=== PATIENT | female | born 1960 | race Caucasian/White ===

== ENCOUNTER 2016-05-02 08:00 | Outpatient (CLI) | payer MEDICAID | END 2016-05-02 08:01 | disposition home or self-care (01) | DX: I10 Essential (primary) hypertension (principal); F41.9 Anxiety disorder, unspecified; F32.9 Major depressive disorder, single episode, unspecified ==

== ENCOUNTER 2016-06-20 18:50 | Emergency (ER) | payer MEDICAID ==
[2016-06-20] MEDS ORDERED: GABAPENTIN 100 MG CAPSULE PO STA (19:55)
[2016-06-20] MEDS ORDERED: HYDROcod/ACETAM 5/325 MG TABLET PO STA (19:56)
[2016-06-20] MEDS ORDERED: GABAPENTIN 300 MG CAPSULE ONE (19:58)
[2016-06-20] MEDS ORDERED: HYDROcod/ACETAM 5/325 MG TABLET ONE (19:58)
[2016-06-20] MEDS ORDERED: HYDROcod/ACET 5/325 Prepack 6 PO STA (21:09)
[2016-06-20] MEDS ORDERED: HYDROcod/ACET 5/325 Prepack 6 PO ONE (21:18)
== END 2016-06-20 21:25 | disposition home or self-care (01) ==
DX: S92.355A Nondisplaced fracture of fifth metatarsal bone, left foot, initial encounter for closed fracture (principal); W01.0XXA Fall on same level from slipping, tripping and stumbling without subsequent striking against object, initial encounter; Y92.019 Unspecified place in single-family (private) house as the place of occurrence of the external cause; I10 Essential (primary) hypertension; K75.9 Inflammatory liver disease, unspecified; F17.200 Nicotine dependence, unspecified, uncomplicated
CPT/HCPCS: 29515; 73630; 99283; A9270

== ENCOUNTER 2017-06-24 11:31 | Outpatient (CLI) | payer MEDICAID ==
--- NOTE | 2017-06-25 13:18 | Mammography Report ---
DIGITAL SCREENING MAMMOGRAM: 06/24/2017 CLINICAL INDICATION: A 57-year-old for screening. COMPARISON: 03/2014, 08/2010. TECHNIQUE: Routine CC and MLO projections were obtained of the breasts. FINDINGS: The breasts again demonstrate fatty replacement bilaterally. Coarse and punctate, typically benign calcifications are present. No suspicious masses, clustered microcalcifications, or regions of architectural distortion are identified. IMPRESSION: BENIGN FINDINGS. RECOMMENDATION: Routine annual screening unless otherwise clinically indicated. BIRADS CATEGORY 2 - BENIGN FINDINGS. STANDARD QUALIFYING STATEMENTS: 1. This examination was reviewed with the aid of Computer-Aided Detection (CAD). 2. A negative or benign imaging report should not delay biopsy if clinically suspicious findings are present. Consider surgical consultation if warranted. More than 5% of cancers are not identified by imaging. 3. Dense breasts may obscure an underlying neoplasm. TD: 06/25/2017 13:17
== END 2017-06-24 11:32 | disposition home or self-care (01) ==
LOC: DI.N 11:31
PROVIDERS: ATTEND Family Medicine
DX: Z12.31 Encounter for screening mammogram for malignant neoplasm of breast (principal)
CPT/HCPCS: 77067

== ENCOUNTER 2017-09-12 12:01 | Day surgery (SDC) | payer MEDICAID ==
[2017-09-12] MEDS ORDERED: LACTATED RINGERS 1,000 ML IV ONE (12:31)
[2017-09-12 15:33] VITALS: BP 138/67
== END 2017-09-12 12:02 | disposition home or self-care (01) ==
LOC: SDS 12:01
PROVIDERS: ATTEND Internal Medicine Gastroenterology
PROC: 0DBN8ZZ Excision of Sigmoid Colon, Via Natural or Artificial Opening Endoscopic (ICD-10-PCS; 2017-09-12)
PROC: 0DBM8ZZ Excision of Descending Colon, Via Natural or Artificial Opening Endoscopic (ICD-10-PCS; principal; 2017-09-12 10:15)
DX: Z12.11 Encounter for screening for malignant neoplasm of colon (principal); D12.4 Benign neoplasm of descending colon; D12.5 Benign neoplasm of sigmoid colon; I10 Essential (primary) hypertension; J45.909 Unspecified asthma, uncomplicated; B19.20 Unspecified viral hepatitis C without hepatic coma; F32.9 Major depressive disorder, single episode, unspecified; F41.9 Anxiety disorder, unspecified
CPT/HCPCS: 45380; J7120; 88305

== ENCOUNTER 2019-05-01 17:53 | Emergency (ER) | payer MEDICAID ==
[2019-05-01] MEDS ORDERED: TETANUS/DIPHTHERIA/PERTUSSIS 0.5 ML SYRINGE IM ONE (18:13)
[2019-05-01] MEDS ORDERED: VANCOMYCIN INJ 2 GM in SODIUM CHLORIDE 0.9% 500 ML IV STA (18:13)
--- NOTE | 2019-05-01 18:15 | ED Physician Documentation ---
PD HPI UPPER EXT INJURY - Stated complaint Stated Complaint: RT ARM SWELLING/REDNESS - Chief complaint Chief Complaint: Ext Problem - History obtained from History obtained from: Patient - History of Present Illness Location: Right (She injected methamphetamine in the right arm a few days ago and subsequently developed a red swollen area there. No fevers. Sent from the office for concern for abscess. Tetanus is unknown.) Review of Systems Constitutional: denies: Fever, Chills Eyes: denies: Loss of vision, Decreased vision, Photophobia Ears: denies: Loss of hearing, Ear pain Nose: denies: Rhinorrhea / runny nose, Congestion Throat: denies: Sore throat Cardiac: denies: Chest pain / pressure, Palpitations Respiratory: denies: Dyspnea, Cough PD PAST MEDICAL HISTORY - Past Medical History Past Medical History: Yes Cardiovascular: Hypertension Respiratory: Asthma Endocrine/Autoimmune: None GI: Hepatitis : None Psych: Depression, Anxiety Musculoskeletal: None - Past Surgical History Past Surgical History: Yes General: Cholecystectomy Ortho: Hip replacement /[employer]: Tubal ligation - Present Medications Home Medications: Ambulatory Orders Medication Instructions Recorded Confirmed Bupropion HCl [Wellbutrin Xl] 300 mg PO DAILY 11/11/12 09/12/17 Trazodone HCl [Oleptro ER] 50 mg PO HS PRN 11/11/12 09/12/17 Buspirone HCl 15 mg PO BID 01/13/14 09/12/17 Chlorthalidone Daily Unknown Dose 25 mg PO DAILY 06/20/16 09/12/17 Losartan [Cozaar] 25 mg PO DAILY 06/20/16 09/12/17 Albuterol Sulfate [Proair Hfa 1 puffs PO RTQ6H PRN 09/12/17 09/12/17 Inhaler] Naproxen [Naprosyn] 500 mg PO BID PRN 09/12/17 09/12/17 Venlafaxine HCl [Venlafaxine HCl 150 mg PO DAILY 09/12/17 09/12/17 ER] Clindamycin HCl [Clindamycin 300MG 300 mg PO Q6H #40 capsule 05/01/19 CAP] Hydrocodone/Acetaminophen 1 - 2 each PO Q6H PRN #10 tablet 05/01/19 [Hydrocodon-Acetaminophen 5-325] - Allergies Allergies/Adverse Reactions: Allergies Allergy/AdvReac Type Severity Reaction Status Date / Time risperidone Allergy Edema Verified 05/01/19 18:06 - Social History Does the pt smoke?: Yes Smoking Status: Current every day smoker Does the pt drink ETOH?: Yes Does the pt have substance abuse?: Yes - Immunizations Immunizations are current?: Yes - POLST Patient has POLST: No PD ED PE NORMAL - Vitals Vital signs reviewed: Yes - General General: Alert and oriented X 3, No acute distress - Cardiac Cardiac: RRR, No murmur - Respiratory Respiratory: No respiratory distress, Clear bilaterally - Abdomen Abdomen: Non tender - Derm Derm: Other (On the medial side of the right forearm there is a red swollen area that is consistent with cellulitis. Bedside ultrasound demonstrates no focal abscess or fluid collection. Range of motion at the wrist is full.) - Neuro Neuro: Alert and oriented X 3, Normal speech Results - Vitals Vitals: Vital Signs - 24 hr 05/01/19 05/01/19 17:57 18:06 Temperature 36.0 C L Heart Rate 94 94 Respiratory 14 14 Rate Blood Pressure 160/97 H 160/97 H O2 Saturation 100 100 Oxygen O2 Source Room air - Labs Labs: Laboratory Tests 05/01/19 05/01/19 18:21 18:21 WBC 6.3 RBC 4.67 Hgb 12.9 Hct 40.7 MCV 87.2 MCH 27.6 MCHC 31.7 L RDW 13.4 Plt Count 164 MPV 9.1 Neut # (Auto) 4.1 Lymph # (Auto) 1.6 [place] # (Auto) 0.4 Eos # (Auto) 0.2 Baso # (Auto) 0.0 Absolute Nucleated RBC 0.00 Nucleated RBC % 0.0 Sodium 138 Potassium 3.6 Chloride 101 Carbon Dioxide 26 Anion Gap 11.0 BUN 14 Creatinine 0.7 Estimated GFR (MDRD) 86 L Glucose 91 Calcium 8.6 PD MEDICAL DECISION MAKING - ED course ED course: This is a 58-year-old woman with cellulitis of the right forearm from methamphetamine injection. Bedside ultrasound demonstrates no abscess at this juncture. Labs were checked and she was administered vancomycin IV. Departure - Departure Disposition: 01 Home, Self Care Clinical Impression: Cellulitis Qualifiers: Site of cellulitis: extremity Site of cellulitis of extremity: upper extremity Laterality: right Qualified Code(s): L03.113 - Cellulitis of right upper limb Condition: Good Record reviewed to determine appropriate education?: Yes Instructions: Cellulitis Dc Prescriptions: Clindamycin HCl [Clindamycin 300MG CAP] 300 mg PO Q6H #40 capsule Hydrocodone/Acetaminophen [Hydrocodon-Acetaminophen 5-325] 1 - 2 each PO Q6H PRN #10 tablet PRN Reason: pain Comments: You were seen today for IV drug use related cellulitis of the right upper extremity. At this juncture there is no evidence of an abscess. Return for new or worsening symptoms and follow-up with Dr. Mcdaniel on Saturday for recheck.
[2019-05-01 18:32] LABS: BASOPHILS % (AUTO) 0.5 %; EOSINOPHILS # (AUTO) 0.2 10^3/uL (0.0-0.7); EOSINOPHILS % (AUTO) 2.9 %; HGB - HEMOGLOBIN 12.9 g/dL (12.0-16.0); LYMPHOCYTES # (AUTO) 1.6 10^3/uL (1.5-3.5); LYMPHOCYTES % (AUTO) 25.2 %; MEAN CORPUSCULAR HEMOGLOBIN 27.6 pg (27.0-31.0); MEAN CORPUSCULAR HGB CONC 31.7 g/dL (32.0-36.0); MEAN CORPUSCULAR VOLUME 87.2 fL (81.0-99.0); MEAN PLATELET VOLUME 9.1 fL (7.9-10.8); MONOCYTES # (AUTO) 0.4 10^3/uL (0.0-1.0); MONOCYTES % (AUTO) 6.5 %; NEUTROPHILS # (AUTO) 4.1 10^3/uL (1.5-6.6); NEUTROPHILS % (AUTO) 64.6 %; PLT - PLATELET COUNT 164 10^3/uL (130-450); RED BLOOD COUNT 4.67 10^6/uL (4.20-5.40); RED CELL DISTRIBUTION WIDTH 13.4 % (12.0-15.0); WHITE BLOOD COUNT 6.3 x10^3/uL (4.8-10.8)
[2019-05-01] MEDS ORDERED: oxyCODONE 5 MG TABLET PO STA (18:32)
[2019-05-01 18:34] LABS: CALCIUM 8.6 mg/dL (8.5-10.3); CREATININE 0.7 mg/dL (0.4-1.0)
[2019-05-01 21:22] VITALS: BP 163/104
== END 2019-05-01 21:21 | disposition home or self-care (01) ==
LOC: ED 17:53
DX: L03.113 Cellulitis of right upper limb (principal); I10 Essential (primary) hypertension; F17.200 Nicotine dependence, unspecified, uncomplicated
CPT/HCPCS: 36415; 80048; 85025; 90471; 90715; 96365; 96366; 99284; A9270; J3370

== ENCOUNTER 2019-05-15 11:31 | Emergency (ER) | payer MEDICAID ==
[2019-05-15 11:42] VITALS: BP 159/97
--- NOTE | 2019-05-15 12:14 | XRAY Report ---
Reason: pain /swelling Procedure Date: 05/15/2019 Accession Number: [id number] / [id number] Procedure: XR - Knee 3 View LT CPT Code: Final Report FULL RESULT: EXAM: LEFT KNEE RADIOGRAPHY EXAM DATE: 05/15/2019 11:59 AM. CLINICAL HISTORY: Pain/swelling. COMPARISON: None. TECHNIQUE: 3 views. FINDINGS: Bones: No fractures or erosive changes. Old evulsion injury seen at the proximal medial aspect of the medial femoral epicondyle. Joints: Moderate-sized joint effusion. Some chondrocalcinosis at the menisci. Faint areas of calcification at the posterior aspect of the knee, loose bodies may be present. Soft Tissues: Normal. No soft tissue swelling. IMPRESSION: 1. No fractures or erosive changes. Old avulsion injury at the medial aspect of the proximal medial femoral condyle. 2. Moderate-sized joint effusion. Some chondrocalcinosis at the menisci. Faint area of calcification seen at the posterior aspect of the knee, loose bodies may be present. RADIA
--- NOTE | 2019-05-15 12:51 | ED Physician Documentation ---
PD HPI LOWER EXT INJURY - Stated complaint Stated Complaint: L KNEE PX - Chief complaint Chief Complaint: Ext Problem - History obtained from History obtained from: Patient - History of Present Illness PD HPI LOW EXT INJURY LOCATION: Left, Knee Type of injury: Other (states standing and walking more than usual in her new job.) Timing - onset: How many days ago (several) Timing - duration: Days (several) Timing - details: Gradual onset Pain level max: 7 Pain level now: 5 Improved by: Rest, Ice, Immobilization Worsened by: Moving, Palpating Associated symptoms: Swelling. No: Weakness, Numbness, Tingling, Discolored Contributing factors: No: Anticoagulated Recently seen: Not recently seen Review of Systems Constitutional: denies: Fever, Chills GI: denies: Vomiting, Diarrhea Skin: denies: Rash Musculoskeletal: denies: Neck pain, Back pain Neurologic: denies: Headache PD PAST MEDICAL HISTORY - Past Medical History Cardiovascular: Hypertension Respiratory: Asthma Endocrine/Autoimmune: None GI: Hepatitis : None Psych: Depression, Anxiety Musculoskeletal: None - Past Surgical History Past Surgical History: Yes General: Cholecystectomy Ortho: Hip replacement /[employer]: Tubal ligation - Present Medications Home Medications: Ambulatory Orders Medication Instructions Recorded Confirmed Bupropion HCl [Wellbutrin Xl] 300 mg PO DAILY 11/11/12 09/12/17 Trazodone HCl [Oleptro ER] 50 mg PO HS PRN 11/11/12 09/12/17 Buspirone HCl 15 mg PO BID 01/13/14 09/12/17 Chlorthalidone Daily Unknown Dose 25 mg PO DAILY 06/20/16 09/12/17 Losartan [Cozaar] 25 mg PO DAILY 06/20/16 09/12/17 Albuterol Sulfate [Proair Hfa 1 puffs PO RTQ6H PRN 09/12/17 09/12/17 Inhaler] Naproxen [Naprosyn] 500 mg PO BID PRN 09/12/17 09/12/17 Venlafaxine HCl [Venlafaxine HCl 150 mg PO DAILY 09/12/17 09/12/17 ER] Clindamycin HCl [Clindamycin 300MG 300 mg PO Q6H #40 capsule 05/01/19 CAP] Hydrocodone/Acetaminophen 1 - 2 each PO Q6H PRN #10 tablet 05/01/19 [Hydrocodon-Acetaminophen 5-325] Meloxicam [Mobic] 7.5 mg PO BID PRN #20 tablet 05/15/19 - Allergies Allergies/Adverse Reactions: Allergies Allergy/AdvReac Type Severity Reaction Status Date / Time risperidone Allergy Edema Verified 05/15/19 11:42 - Social History Does the pt smoke?: Yes Smoking Status: Current every day smoker Does the pt drink ETOH?: Yes Does the pt have substance abuse?: Yes - Immunizations Immunizations are current?: Yes - POLST Patient has POLST: No PD ED PE NORMAL - Vitals Vital signs reviewed: Yes - General General: Alert and oriented X 3, No acute distress - HEENT HEENT: Moist mucous membranes - Derm Derm: Warm and dry - Extremities Extremities: Other (L knee - mild to moderate effusion. ACL, MCL, PCL and LCL intact. ) - Neuro Neuro: Alert and oriented X 3 - Psych Psych: Normal mood, Normal affect Results - Vitals Vitals: Vital Signs - 24 hr 05/15/19 11:38 Temperature 36.9 C Heart Rate 99 Respiratory 16 Rate Blood Pressure 159/97 H O2 Saturation 100 Oxygen O2 Source Room air - Rads (name of study) Left knee x-ray Radiology: Prelim report reviewed, EMP read contemporaneously, See rad report (1. No fractures or erosive changes. Old avulsion injury at the medial aspect of the proximal medial femoral condyle. 2. Moderate-sized joint effusion. Some chondrocalcinosis at the menisci. Faint area of calcification seen at the posterior aspect of the knee, loose bodies may be present. ) PD MEDICAL DECISION MAKING - ED course Complexity details: reviewed results, re-evaluated patient, considered differential, d/w patient ED course: Patient with a left knee effusion. Placed in an articulating knee brace. She has crutches. Will prescribe pain medication for home as well. I will have her follow-up with orthopedics for further care. Patient counseled regarding signs and symptoms for which I believe and urgent re-evaluation would be necessary. Patient with good understanding of and agreement to plan and is comfortable going home at this time This document was made in part using voice recognition software. While efforts are made to proofread this document, sound alike and grammatical errors may occur. Departure - Departure Disposition: 01 Home, Self Care Clinical Impression: Effusion, left knee Condition: Good Instructions: ED Effusion Knee Follow-Up: JOHN PALMA MD [Primary Care Provider] - [facility] [Provider Group] - Within 1 week Prescriptions: Meloxicam [Mobic] 7.5 mg PO BID PRN #20 tablet PRN Reason: Pain Comments: Wear the brace for comfort. Return if you worsen. Follow up with your doctor and orthopedics for further care. Discharge Date/Time: 05/15/19 13:17
[2019-05-15] MEDS ORDERED: MELOXICAM 7.5 MG TABLET PO STA (13:10)
== END 2019-05-15 13:17 | disposition home or self-care (01) ==
LOC: ED 11:31
DX: M25.462 Effusion, left knee (principal); M11.262 Other chondrocalcinosis, left knee; I10 Essential (primary) hypertension; F17.200 Nicotine dependence, unspecified, uncomplicated
CPT/HCPCS: 99283; 99284

== ENCOUNTER 2020-01-08 08:00 | Outpatient (CLI) | payer MEDICAID | END 2020-01-08 23:59 | disposition home or self-care (01) | LOC: LAB.R 08:00 | PROVIDERS: ATTEND Family Medicine | DX: J18.9 Pneumonia, unspecified organism (principal) ==

== ENCOUNTER 2020-05-13 17:05 | Outpatient (CLI) | payer MEDICAID ==
--- NOTE | 2020-05-14 01:05 | XRAY Report ---
PROCEDURE: Knee 3 View RT INDICATIONS: RT KNEE PAIN TECHNIQUE: 3 views of the right knee(s) were acquired. COMPARISON: None. FINDINGS: Bones: No acute fractures or dislocations. No suspicious bony lesions. Mild tricompartmental degene rative changes most pronounced in the patellofemoral compartment. Small patellofemoral and medial com partment marginal osteophytes. Soft tissues: Small suprapatellar joint effusion. No suspicious soft tissue calcifications. IMPRESSION: Right knee without acute osseous abnormalities. Mild tricompartmental osteoarthrosis wit h suprapatellar joint effusion. Reviewed by: William Ramesh MD on 05/14/2020 1:03 AM PST Approved by: William Ramesh MD on 05/14/2020 1:03 AM PST Station ID: [id number]
== END 2020-05-13 17:06 | disposition home or self-care (01) ==
LOC: DI 17:05
PROVIDERS: ATTEND Nurse Practitioner Family
DX: M25.561 Pain in right knee (principal); M17.11 Unilateral primary osteoarthritis, right knee

== ENCOUNTER 2020-05-31 10:43 | Outpatient (CLI) | payer MEDICAID ==
--- NOTE | 2020-06-01 10:05 | Mammography Report ---
BILATERAL DIGITAL SCREENING MAMMOGRAM 3D/2D: 05/31/2020 CLINICAL: Family history of breast cancer. Routine screening. Comparison is made to exams dated: 06/24/2017 mammogram and 03/10/2014 mammogram - [facility]. The tissue of both breasts is predominantly fatty. No significant masses, calcifications, or other findings are seen in either breast. There has been no significant interval change. IMPRESSION: NEGATIVE There is no mammographic evidence of malignancy. A 1 year screening mammogram is recommended. This exam was interpreted at Station ID: [id number]. NOTE: For mammograms, a report in lay terms will be sent to the patient. Approximately 15% of breast malignancies will not be visualized mammographically. In the management of a palpable breast mass, a negative mammogram must not discourage biopsy of a clinically suspicious lesion. Electronically Signed By: Cliff Silva M.D. slc/penrad:05/31/2020 15:31:00 ACR BI-RADS Category 1: Negative 3341F PARENCHYMAL PATTERN: (F) - The breast(s) demonstrate(s) diffuse fatty replacement. BI-RADS CATEGORY: (1) - 1 RECOMMENDATION: (ANNUAL) - Recommend routine annual screening mammography. [id number] 1 year screening LATERALITY: (B)
== END 2020-05-31 10:44 | disposition home or self-care (01) ==
LOC: DI.N 10:43
PROVIDERS: ATTEND Internal Medicine
DX: Z12.31 Encounter for screening mammogram for malignant neoplasm of breast (principal); Z80.3 Family history of malignant neoplasm of breast

== ENCOUNTER 2020-07-25 15:10 | Outpatient (CLI) | payer MEDICAID ==
[2020-07-25 18:08] LABS: BILIRUBIN,URINE NEGATIVE (NEGATIVE); GLUCOSE, URINE (UA) NEGATIVE (NEGATIVE); KETONES,URINE (UA) NEGATIVE (NEGATIVE); LEUKOCYTE ESTERASE, URINE TRACE (NEGATIVE); NITRITE,URINE NEGATIVE (NEGATIVE); OCCULT BLOOD,URINE NEGATIVE (NEGATIVE); PH,URINE 6.5 PH (5.0-7.5); PROTEIN,URINE NEGATIVE (NEGATIVE); UROBILINOGEN,URINE 0.2 (NORMAL) E.U./dL (NORMAL)
[2020-07-25 18:15] LABS: CLARITY,URINE HAZY (CLEAR)
[2020-07-25 18:21] LABS: BACTERIA,URINE Few /HPF (None Seen); RBC,URINE 0-5 /HPF (0-5); SQUAMOUS EPITHELIAL CELL,UR FEW Squamous (<= Few)
[2020-07-25 22:03] LABS: CHLAMYDIA TRACHOMATIS DNA NEGATIVE (NEGATIVE); NEISSERIA GONORRHOEAE DNA NEGATIVE (NEGATIVE); TRICHOMONAS VAGINALIS DNA NEGATIVE (NEGATIVE)
== END 2020-07-25 23:59 | disposition home or self-care (01) ==
LOC: LAB.R 15:10
PROVIDERS: ATTEND Emergency Medicine
DX: R10.2 Pelvic and perineal pain (principal)
CPT/HCPCS: 81001; 87086; 87491; 87591; 87661

== ENCOUNTER 2022-12-31 08:00 | Outpatient (CLI) | payer MEDICAID ==
--- NOTE | 2022-12-31 11:41 | XRAY Report ---
PROCEDURE: Knee 4 View BILAT INDICATIONS: BILAT KNEE PAIN TECHNIQUE: 4 views of each knee(s) were acquired. COMPARISON: X-ray right knee, 05/13/2020. X-ray left knee, 05/15/2019.. FINDINGS: Right: No fractures or dislocations. No suspicious bony lesions. [id number]-[id number] tricompartmental knee joint degeneration. Chondrocalcinosis. Mild joint space narrowing with weightbearing. Small to moderate knee joint effusion. No suspicious soft tissue calcifications or masses. Left: No fractures or dislocations. No suspicious bony lesions. Xido-et-gvkoeaqa tricompartmental k nee joint degeneration. Chondrocalcinosis. Mild joint space narrowing with weightbearing. Prominent spurring in the medial femoral condyle at the MCL attachment, suggesting prior MCL sprain. Small kne e joint effusion. No suspicious soft tissue calcifications or masses. IMPRESSION: 1. Wcyy-hl-ohxscemz osteoarthritic changes bilaterally. 2. Chondrocalcinosis. Common diagnostic considerations include CPPD and hyperparathyroidism. 3. Small knee joint effusions, right greater than left. 4. Suspect old left MCL sprain. Reviewed by: Akash Florez MD on 12/31/2022 11:40 AM PDT Approved by: Akash Florez MD on 12/31/2022 11:40 AM PDT Station ID: [id number]
== END 2022-12-31 23:59 | disposition home or self-care (01) ==
LOC: DI.WOS 08:00
PROVIDERS: ATTEND Orthopaedic Surgery
DX: M17.0 Bilateral primary osteoarthritis of knee (principal); M11.261 Other chondrocalcinosis, right knee; M25.462 Effusion, left knee; M25.461 Effusion, right knee

== ENCOUNTER 2023-05-09 10:19 | Outpatient (CLI) | payer MEDICAID ==
--- NOTE | 2023-05-10 12:05 | Mammography Report ---
BILATERAL DIGITAL SCREENING MAMMOGRAM 3D/2D: 05/09/2023 CLINICAL: Routine screening. Family history of breast cancer. Comparison is made to exams dated: 05/31/2020 mammogram, 06/24/2017 mammogram, 03/10/2014 mammogram - [facility], and 09[place] [facility] [place] breasts are almost entirely fatty (category a/<25% glandular tissue). There are benign calcifications in both breasts. No significant masses, calcifications, or other findings are seen in either breast. There has been no significant interval change. IMPRESSION: BENIGN There is no mammographic evidence of malignancy. A 1 year screening mammogram is recommended. Based on the Tyrer Cuzick model (a risk assessment model) the patient's lifetime risk is 9.3% and her 10 year risk is 4.2%. According to the ACR, ACS, and NCCN guidelines, an annual breast MRI exam mercy g with mammogram is recommended if the patient's lifetime risk is 20% or greater. This exam was interpreted at Station ID: [id number]. NOTE: For mammograms, a report in lay terms will be sent to the patient. Approximately 15% of breast malignancies will not be visualized mammographically. In the management of a palpable breast mass, a negative mammogram must not discourage biopsy of a clinically suspicious lesion. Electronically Signed By: Mathew smith/marlene:05/09/2023 11:09:32 letter sent: No_Letter ACR BI-RADS Category 2: Benign Finding(s) 3342F PARENCHYMAL PATTERN: (F) - The breast(s) demonstrate(s) diffuse fatty replacement. BI-RADS CATEGORY: (2) - 2 Mammogram [id number] 1 year screening LATERALITY: (B)
== END 2023-05-09 10:20 | disposition home or self-care (01) ==
LOC: DI.N 10:19
PROVIDERS: ATTEND Internal Medicine
DX: Z12.31 Encounter for screening mammogram for malignant neoplasm of breast (principal); Z80.3 Family history of malignant neoplasm of breast